=== PATIENT | female | born 1985 | race Caucasian/White ===

== ENCOUNTER 2018-04-27 07:54 | Day surgery (SDC) | payer OTHER ==
[~2018-04-27 07:54] MED LIST: ceFAZolin 2 GM/50 ML 2 GM/50 ML BAG IV ONE
[2018-04-27] MEDS ORDERED: BUPIVACAINE 0.25% PF 30 ML VIAL ONE (07:55)
[2018-04-27] MEDS ORDERED: LACTATED RINGERS 1,000 ML IV ONE ×2 (08:01→10:58)
[2018-04-27 08:14] LABS: HCG UR QUAL NEGATIVE
--- NOTE | 2018-04-27 08:18 | ANESTHESIA ---
Pre-Anesthesia VS, & Labs - Diagnosis right carpal tunnel syndrome - Procedure right carpal tunnel release Vital Signs: Temp Pulse Resp BP Pulse Ox 36.6 C 75 16 121/70 98 04/27/18 08:03 04/27/18 08:03 04/27/18 08:03 04/27/18 08:03 04/27/18 08:03 Height 4 ft 11 in Weight (kg) 67 kg - NPO >8 hours - Is Patient ?: No - Lab Results Lab results reviewed: Yes Home Medications and Allergies Home Medications: Ambulatory Orders Multivitamin [Multiple Vitamins] 1 each PO DAILY 04/25/18 Multivitamin [Multiple Vitamins] 1 each PO DAILY 04/25/18 Allergies/Adverse Reactions: Allergies Allergy/AdvReac Type Severity Reaction Status Date / Time No Known Drug Allergies Allergy Verified 04/25/18 11:30 Anes History & Medical History - Anesthetic History Anesthesia Complications: reports: No previous complications Family history of Anesthesia Complications: Denies Family history of Malignant Hyperthermia: Denies - Medical History Cardiovascular: reports: None Pulmonary: reports: None Gastrointestinal: reports: None Urinary: reports: None Musculoskeletal: reports: Other Endocrine/Autoimmune: reports: None Skin: reports: None - Surgical History General: Other Exam General: Alert, Oriented x3, Cooperative, No acute distress Dental: WNL Mouth Openin Fingerbreadth Neck Mobility: Normal Mallampati classification: III Thyromental Distance: 4-6 cm Respiratory: Lungs clear, Normal breath sounds, No respiratory distress, No accessory muscle use Cardiovascular: Regular rate, Normal S1, Normal S2, No murmurs Mental/Cognitive Status: Alert/Oriented X3, Normal for patient Cognitive Status: Within normal limits Plan Anesthesia Type: General Consent for Procedure(s) Verified and Reviewed: Yes Code Status: Attempt Resuscitation ASA classification: 1-Healthy patient Is this case an emergency?: No
[2018-04-27] MEDS ORDERED: MIDAZOLAM 2 MG/2 ML VIAL IVP ONE (10:35)
[2018-04-27] MEDS ORDERED: DEXAMETHASONE 4 MG/ML VIAL IVP ONE (10:35)
[2018-04-27] MEDS ORDERED: PROPOFOL 200 MG/20 ML VIAL IVP ONE (10:35)
[2018-04-27] MEDS ORDERED: LIDOCAINE-MPF 2% 5 ML VIAL IM ONE (10:35)
[2018-04-27] MEDS ORDERED: ONDANSETRON 4 MG/2 ML VIAL IVP ONE (10:35)
[2018-04-27] MEDS ORDERED: KETOROLAC 30 MG/ML VIAL IVP ONE (10:35)
[2018-04-27] MEDS ORDERED: fentaNYL 100 MCG/2 ML VIAL IVP ONE (10:35)
[2018-04-27] MEDS ORDERED: BUPIVACAINE 0.25% PF 30 ML VIAL SUBQ ONE (10:39)
[2018-04-27] MEDS ORDERED: ONDANSETRON 4 MG/2 ML VIAL IVP PRN (11:40)
[2018-04-27] MEDS ORDERED: oxyCODONE 5 MG TABLET PO PRN (11:40)
--- NOTE | 2018-04-27 12:25 | OPERATIVE REPORT ---
Operative Report - General Procedure Date: 04/27/18 Planned Procedure: Right open carpal tunnel release Pre-Op Diagnosis: Right carpal tunnel syndrome Procedure Performed: Right open carpal tunnel release Post Op Diagnosis: Right carpal tunnel syndrome - Procedure Note Primary Surgeon: Mikey Rodriguez MD Anesthesia Technique: General LMA Estimated Blood Loss (mL): 5 - Other Other Information/Narrative: Tourniquet Time: 29 minutes at 250mmHg. Specimen(s) Information: None Complication(s): None Condition: Stable to recovery Indications for Surgery: The patient is a 32-year-old right hand dominant female with a 5-year history of right hand numbness in the median nerve distribution that began during . Clinical exam and EMG consistent with moderate to severe right carpal tunnel syndrome. They had failed non-operartive management and desired surgical intervention. Risks of surgery were discussed to include bleeding, infection, postoperative wrist stiffness, damage to nerves (including the median nerve and recurrent motor branch to the thenar musculature), vessels, tendons, ligaments, anesthesia complications to include medication side effects and allergic reactions, blood clot, stroke, heart attack and even . After a discussion, they wished to proceed. Findings: Thickened transverse carpal ligament Descriptions of Procedure: The patient was met in the Preoperative Holding Area, at which time preoperative paperwork was confirmed. The right volar wrist was signed. The patient was then brought to Main Operating Room, placed supine on the Operating Room table, at which time pre procedure timeout was conducted to confirm correct patient, ruddy ect extremity and correct procedure and also to confirm presence and sterility of all required equipment and to confirm that antibiotics were being administered in the form of 2g of intravenous Ancef. After this was confirmed, general anesthesia was induced. The operative extremity was then prepped and draped over a hand table in the normal sterile fashion after a well-padded tourniquet was placed on the proximal arm. A final timeout was conducted to confirm the correct patient, correct extremity and correct procedure and to confirm that antibiotics had been administered within 30 minutes of incision time. The operative extremity was then exsanguinated with an Esmarch bandage and tourniquet inflated to 250mmHg. Tavera's cardinal line, and the proximal projection of the radial border of the fourth digit, the hook of hamate and pisiform were marked on the hand. A 3cm longitudinal incision was made with a #15 blade through skin and subcutaneous tissue. Dissection was further carried out with tenotomy scissors. Small crossing vessels were coagulated with bipolar electrocautery, the palmar fascia was exposed, and split longitudinally in line with its fibers, the fat was retracted ulnarly, and the transverse carpal ligament was exposed. A 15 blade was used to make a small incision in the transverse carpal ligament, and then a small mosquito clamp was introduced directly deep to the ligament above the contents of the carpal tunnel to gently free off any adhesions between the deep surface of the transverse carpal ligament and the median nerve. Dissection was carried distally under direct visualization, releasing the transverse carpal ligament until the palmar fat was was visualized. Digital examination was performed to ensure that there were no remaining tight bands constricting the nerve. Attention was then turned proximally, and a Bricelyn elevator was passed deep to the transverse carpal ligament and antebrachial fascia, and these were incised in line with the nerve approximately 2 cm proximal to the distal wrist crease. This was performed under direct visualization. Again digital examination of the proximal extent of the release was performed to ensure no tight bands or constrictive points remained over the nerve. Satisfied that the carpal tunnel had been completely released, the wound was irrigated, and the tourniquet was let down. Pressure was held on the incision for approximately 5 minutes, and bleeding points were then cauterized with bipolar electrocautery. After ensuring good hemostasis, the wound was again irrigated and then closed using a combination of 3-0 Vicryl in buried interrupted fashion for the subcutaneous tissue, followed by 4-0 Prolene in interrupted vertical and horizontal mattress fashion. 10 mL of quarter percent Marcaine plain, was injected into the nuvia-incisional soft tissues. The wound was then dressed with Xeroform, 4 x 4 gauze and a compressive Girma wrap. The patient was then awakened from general anesthesia without complication, brought to the Post Anesthesia Care for further recovery. Postoperative Plan: 1. The patient will be discharged from the Same Day Surgery Unit when discharge criteria are met. 2. The patient will remain in a soft dressing until follow-up. They can begin gentle wrist range of motion on postoperative day #1 or #2 as pain allows. 3. The patient will follow up in 6 days for a wound check and range of motion check. She will return for suture removal and steri-strip placement the following week. 4. Expect return to full duty in 6-8 weeks, they may have wrist stiffness postoperatively.
[2018-04-27 12:39] VITALS: BP 114/81
== END 2018-04-27 07:55 | disposition home or self-care (01) ==
LOC: SDS 07:54
PROVIDERS: ATTEND Orthopaedic Surgery
PROC: 01N50ZZ Release Median Nerve, Open Approach (ICD-10-PCS; principal; 2018-04-27 09:30)
DX: G56.03 Carpal tunnel syndrome, bilateral upper limbs (principal)
CPT/HCPCS: 64721; 81025; J0690; J7120